=== PATIENT | female | born 1990 | race Caucasian/White ===

== ENCOUNTER 2025-05-11 17:34 | Observation (INO) | payer BC, SELFPAY ==
[2025-05-11] VITALS (10 sets, daily range): BP systolic 109–113; BP diastolic 60–67; PULSE 67–89; O2SAT 95–98; BMI 26.6
--- OUTSIDE RECORDS SUMMARY | 2025-05-11 17:41 | XMS_ITS | Data Portability ---
Author Organization [facility], [id number] [facility] Address [address] [place] [address] Assessment No assessment recorded. Plan of Treatment Reminders Order Date Submit Date Provider Last Modified By Organization Details Last Modified Time Details Appointments None recorded . Lab HPV DNA, high-ris k - Reflex to genotypi ng if HPV Detected 2024 025 LAVEEN [facility] ([facility]), [address] [facility] , [place] [address], [place], [address], 5 10:04:28 abo group + rh type, blood - Fax copy of results to [facility]: [phone] 2024 025 [facility], [address] [place], [place] [address], [address], 5 14:10:59 antibody screen, serum or plasma - Fax copy of results to [facility]: [phone] 2024 025 [facility], [address] [place], [address], 5 14:32:56 CBC w/ diff - Fax copy of results to [facility]: 2024 025 [facility], [address], [place], [address], 5 13:27:41 rubella igg Ab screen, serum - Fax copy of results to [facility]: [facility]-[phone] 025 [facility], [address] [facility], [place], [address], 5 08:38:58 syphilis Ab, igg - Fax copy of results to [facility]: [facility]-[phone] 025 [facility], [address] [place] [address], [place], [address], 5 08:36:03 HIV 1+2 AB + HIV 1 p24 Ag, qualitat lester immunoas say, serum - Fax copy of results to [facility]: [phone] 2024 025 [facility], [address] [place] [address], [place], [address], 5 08:38:52 HBsAg (hepatit is B surface Ag), serum - Fax copy of results to [facility]: [facility]-[phone] 025 [facility], [address] [place] [address], [place], [address], 5 09:01:54 Hepatiti s C IgG Ab, qual, serum - Fax copy of results to [facility]: [phone] 2024 025 [facility], [address] [facility], [place], [address], 5 08:41:37 urinalys is, complete - Fax copy of results to [facility]: [phone] 2024 025 [facility], [address], [place], [address], 14:09:42 culture, urine + sensitiv ity - Fax copy of results to [facility]: 2024 025 [facility], [address], [place], [address], 11:08:06 CT + NG + TV, DNA, urine/sw ab - Fax copy of results to [facility]: [phone] 2024 025 [facility] ([facility]), [address] [facility], [place], [address], 10:04:28 pap, LB 2024 025 [facility]EN [facility] ([facility]), [address], [place], [address], 5 10:04:28 vitamin D, 25-hydro xy, total, serum [address] [facility], [address], [place], [address], 17:35:26 TSH, serum or plasma 2024 025 [facility], [address], [place], [address], 5 12:19:04 vitamin B12, serum 2024 025 [facility], [address], [place], [address], 17:35:26 Referral None recorded . Procedures None recorded . Surgeries None recorded . Imaging None recorded . Medication Orders None recorded . Patient TargetsNo targets recorded. Patient InstructionsNo instructions recorded. Reason for Referral None Reported. Results Created Date Observation Date Name Description Value Unit Range Abnormal Flag Note LastModifiedBy Organization Detail LastModifiedTime 01/22/2001/23/2025 PAP TEST THIN PREP Pap test thin prep NEGATI VE FOR INTRAE PITHEL IAL LESION OR MALIGN XAVI normal ACCES SANDY #: 25-[id number] Sourc e: Cervi darren/E ndoce rvica l LMP: Date Taken : 01/21 Speci men Type: ThinP rep Vial Date Repor shellie: 2024 Clini darren Data: n/a RadHX Last Pap: WNL (07/20) Cytot ech: Tamara Hardy y, CT( CP) Date Repor shellie: 2024 Speci men Adequ acy: Satis facto ry for evalu ation Endoc ervic al/tr ansfo rmati on zone compo nent prese nt Gener al Categ oriza tion: NEGAT LESTER FOR INTRA EPITH ELIAL LESIO N OR MALIG BOBBY The follo wing tests have been order ed as reque sted and a separ ate repor t will be issue d: Chlam ydia, Gonor rhoea e, and Trich omona s This speci men has been moose zed by the ThinP rep Imagi ng Syste m, an inter activ e compu ter syste m which ana ts the lab in the scree ajay of ThinP rep Pap Test slide s. Follo wing imagi ng, the slide was revie wed by a Cytot echno logis t and/o r Patho logis t. Cervi darren cytol ogy is a scree ajay test prima rily for squam ous cance rs and precu rsors and has assoc iated false -nega tive and false -posi tive resul ts. New techn ologi es such as liqui d-bas ed prepa ratio ns may decre ase but will not elimi cara all false -nega tive resul ts. Regul ar sampl ing and follo w-up of unexp grayson d clini darren signs and sympt oms are recom tara d to minim ize false negat lester resul ts. D N A A S S A Y S R E P O R T TEST NAME RESUL TS ----- ---- ----- -- HPV High Risk Scree n (TMA) ThinP rep Vial The human papil lomav irus (HPV) High Risk Scree n is an FDA-a pprov ed in-vi tro ampli fied nucle ic acid test for the quali tativ e detec tion of E6/E7 viral mRNA. Resul ts shoul d be corre lated with patie nt prese ntati on, histo ry, cervi darren cytol ogy and other clini darren and labor atory findi ngs. See https ://PeopleJam/s ites/ defkiran lt/fi les/2 018-0 3/AW- 29690 _002_ 01.pd f for german ortizr gloria pierre. Test perfo rmed by [facility], [facility] d/b/a Loyda garcia, [address], [place] [address] , Danitza Duncan ra, DO, Labor atory [facility], [facility]# [id number] HPV High Risk *HPV NOT DETEC SHELLIE (TYPE S 16, 18, 31, 33, 35, 39, 45, 51, 52, 56, 58, 59, 66, 68) *HPV: The human papil lomav irus (HPV) High Risk Scree n is an FDA-a pprov ed in-vi tro ampli fied nucle ic acid test for the quali tativ e detec tion of E6/E7 viral mRNA. Resul ts shoul d be corre lated with patie nt prese ntati on, histo ry, cervi darren cytol ogy and other clini darren and labor atory findi ngs. See https ://ww w.hol ogic. com/s ites/ defau lt/fi les/2 018-0 3/AW- 16426 _002_ 01.pd f for german er angelr gloria pierre. Test perfo rmed by [facility] logis [employer], [employer] d/b/a [facility], [address], [place] [address] , Danitza Duncan ra, DO, Labor [facility], CLIA# [id number] End of t Techn ical servi jarek provi ded by [facility] iated Patho logis [employer], [employer], d/b/a [facility], [address] [place] [address] David hennessy MD, [facility]. Case revie wed and diagn osis rende red at [facility]o logis [employer], [facility], d/b/a [facility], [address] [place] [address] David hennessy MD, [facility]. CONFI DENTI AL Not Available [facility] ([facility]) [address], [place], [address], 01/23/2025 10:04:28 01/22/20 25 01/22/2025 CHLAM YDIA, GONOR RHOEA E, AND TRICH OMONA S trichomonas vaginalis, aptima (panther) NOT DETECT ED normal DNA testi ng perfo rmed by [employer] shellie Ampli ficat ion (TMA) . Resul ts shoul d be inter prete d in conju nctio n with patie nt histo ry and clini darren prese ntati on. This assay is highl y accur ate, but rare false posit lester and negat lester resul ts may occur . Posit lester resul ts in low preva lence popul ation s may requi re re-ev aluat ion. A negat lester resul t does not precl ude a possi ble infec tion due to a speci men inade quacy or sampl ing error . Test perfo rmed by [facility] d/b/a [facility], [address], [place] [address] , Danitza Duncan ra, , [facility], CLIA# [id number] Not Available [facility] ([facility]) [address], [place], [address], 01/23/2025 10:04:28 01/22/20 25 01/22/2025 CHLAM YDIA, GONOR RHOEA E, AND TRICH OMONA S neisseria gonorrhoeae, aptima NOT DETECT ED normal DNA testi ng perfo rmed by [employer] shellie Ampli ficat ion (TMA) . Resul ts shoul d be inter prete d in conju nctio n with patie nt histo ry and clini darren prese ntati on. This assay is highl y accur ate, but rare false posit lester and negat lester resul ts may occur . Posit lester resul ts in low preva lence popul ation s may requi re re-ev aluat ion. A negat lester resul t does not precl ude a possi ble infec tion due to a speci men inade quacy or sampl ing error . Test perfo rmed by [facility] d/b/a [facility], [address], [place] [address] , Danitza Duncan ra, DO, Labor atory [facility], CLIA# [id number] Not Available [facility]) [address], [place], [address], 01/23/2025 10:04:28 01/22/20 25 01/22/2025 CHLAM YDIA, GONOR RHOEA E, AND TRICH OMONA S chlamydia trachomatis, aptima NOT DETECT ED normal DNA testi ng perfo rmed by Trans c[employer] shellie Ampli ficat ion (TMA) . Resul ts shoul d be inter prete d in conju nctio n with patie nt histo ry and clini darren prese ntati on. This assay is highl y accur ate, but rare false posit lester and negat lester resul ts may occur . Posit lester resul ts in low preva lence popul ation s may requi re re-ev aluat ion. A negat lester resul t does not precl ude a possi ble infec tion due to a speci men inade quacy or sampl ing error . Test perfo rmed by [facility] d/b/[facility], [address], [place] [address] , Danitza Duncan ra, DO, Labor atory [facility], CLIA# [id number] Not Available [facility] ([facility]) [address] [facility], [place], [address], 01/23/2025 10:04:28 01/22/20 25 01/22/2025 HPV HIGH RISK SCREE N (TMA) HPV high risk NOT DETECT ED normal The human papil lomav irus (HPV) High Risk Scree n is an FDA-a pprov ed in-vi tro ampli fied nucle ic acid test for the quali tativ e detec tion of E6/E7 viral mRNA. Resul ts shoul d be corre lated with patie nt prese ntati on, histo ry, cervi darren cytol ogy and other clini darren and labor atory findi ngs. See https ://PeopleJam/s ites/ defau lt/fi les/2 018-0 3/AW- 75875 _002_ 01.pd f for furth er infor matio n. Test perfo rmed by [facility] [employer], [employer] d/b/a [facility], [address], [place] [address] , Danitza Duncan ra, , Labor atory [facility], CLIA# [id number] Not Available [facility] ([facility]) [address], [place], [address], 01/23/2025 10:04:28 Result Notes None recorded. 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 64120809 Completed 202408/26/2024 Amrita mckeon null, [facility] 5 07:59:25 Irritabl e bowel syndrome 79143289 Completed 202408/26/2024 Amrita mckeon null, [place] [facility] 5 07:58:56 SARS-CoV -2 Completed 202408/26/2024 Amrita mckeon null, [place] [facility] 5 07:59:07 Anxiety disorder 357601133 Active 2024 Amrita mckeon null, [place] [facility] 5 07:59:19 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 11194516 Active 2024 Amrita mckeon null, [place] [facility] 5 07:59:24 Chlamydi al infectio n 377549449 Completed 202408/26/2024 Amrita mckeon null, [place] [facility] 5 07:59:41 Lack or loss of sexual desire 204085217 Active 2024 LOVE MCKEON [address], [place], [place], [address], [facility] 5 16:10:29 Vitamin D deficien cy 53350495 Active 2024 LOVE MCKEON [address] [facility] [address], [place], [place], [address], [facility] 5 17:48:09 Vitamin B12 deficien cy (non anemic) 26721045 Active 2024 LOVE MCKEON [address] [facility] [address], [place], [place], [address], [facility] 5 17:49:00 Pregnanc y 53558969 Completed 202403/14/2025 Raiza Pereira [facility], [facility] 5 17:00:57 Low back pain 543231030 Active 2024 Chris Nix null, [facility] 5 10:59:29 History of depressi on 677405431 Completed 2024 zoloft PP in jul 2020. stopped cymbalta before NOB, doing fine @NOB JOSE HOLBROOK MD [address] [facility] [address], [place], [place], [address], [facility] 5 11:15:14 Past pregnanc y history of section 830336742 Completed 2024 vacuum for dena, then CS at 5cm arrest. TOLAC info @NOB. JOSE HOLBROOK MD [address] [facility] [address], [place], [place], [address], [facility] 5 11:04:55 Problem Notes None recorded. Procedures Surgical History Date Name Laterality Status Provider Name and Address Organization Details Recorded Time 01/22/20 25 U/S OB FIRST TRIMESTER (UEHRC) completed JOSE HOLBROOK MD [address] [facility] [address], [place], [address], [facility] 01/21/2025 11:10:53 07/20/19 23 Date of Last Pap Smear completed Marlen Light [place] [facility] 02/18/2025 09:33:11 05/02/20 22 Dilation and Curettage completed Amrita Peacock [facility] 08/26/2024 08:04:43 09/25/19 20 Appendectomy completed Amrita Peacock [facility] 08/26/2024 08:03:48 06/26/19 17 Date of Last Colonoscopy completed Tabitha Huber(TERM) [facility] 12/31/2024 08:40:56 endoscopy completed Amrita Peacock [facility] 08/26/2024 08:04:57 insertion of intrauterine contraceptive device completed Amrita Peacock [facility] 08/26/2024 15:49:05 Appendectomy completed Not Available [facility] 10/24/2024 12:22:55 section completed Not Available [facility] 10/24/2024 12:22:55 dilation and curettage completed Not Available [facility] 10/24/2024 12:22:55 introduction of Mirena coil completed Not Available [facility] 10/24/2024 12:22:55 colonoscopy completed Not Available [facility] 10/24/2024 12:22:55 Colonoscopy completed Marlen Light [facility] 02/18/2025 09:33:20 Imaging Results None recorded. Procedure Notes None recorded. Medical Equipment None Reported. Allergies Allergen ID Allergen Name Allergen Category Reaction Reaction Severity Criticality Documentation Date Start Date Code Code System Note Provider Name and Address Organization Details Recorded Time 892882 Benadryl medicatio n rash Not available Not available 08/26/2024 7 RxNorm Amrita ferraro [place] [facility] 07:57:12 Medications Name Sig Start Date Stop Date Status Note LastModified by Organization Details LastModified Time azithromycin 250 mg tablet TAKE 2 TABLETS BY MOUTH ON DAY 1, AND THEN TAKE 1 TABLET BY MOUTH ONCE A DAY ON DAY 2 THROUGH DAY 5 08/26 completed Not Available Not Available Not Available Cymbalta 60 mg capsule,megha yed release Take 1 capsule every day by oral route. 01/21 completed Not Available Not Available Not Available active Not Available Not Avai lable Not Available Vitals Date Recorded Body height Body mass index (BMI) Body weight Systolic And Diastolic Provider Name and Address Organization Details Last Updated DateTime 08/26/2024 175.26 cm 25.4 kg/m2 53808.89 g 118/68 mm[Hg] Amrita Peacock [facility] 08/26/2024 15:46:26 Date Recorded Body weight Body mass index (BMI) Body height Systolic And Diastolic Provider Name and Address Organization Details Last Updated DateTime 01/21/2025 21988.480 01 g 25.5 kg/m2 175.26 cm 104/60 mm[Hg] Chris Nxi [facility] 01/21/2025 10:58:10 Date Recorded Body weight Body mass index (BMI) Body height Systolic And Diastolic Provider Name and Address Organization Details Last Updated DateTime 02/18/2025 27542.849 49 g 26.1 kg/m2 175.26 cm 110/60 mm[Hg] Marlen Light [facility] 02/18/2025 09:28:31 Social History Question Answer Notes LastModified by Let it Wave Details LastModified Time Tobacco Smoking Status Never Smoker Amrita Peacock [facility] 08/26/2024 15:46:52 Do You Have An Advance Directive? No Information not available 08/26/2024 If You Are , What Was Your Level Of Alcohol Consumption Prior To ? Occasional Information not available 02/18/2025 What Is Your Level Of Caffeine Consumption? Occasional Information not available 02/18/2025 What Type Of Diet Are You Following? REGULAR Information not available 08/26/2024 What Is Your Relationship Status? Information not available 08/26/2024 Sex: Female Functional Status Question Answer Note LastModified by Organizat ion Details LastModified Time Do you use any illicit or recreational drugs? No Note: Information not available 10/24/2024 What is your level of alcohol consumption? None Information not available 02/18/2025 Are you currently employed? 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 Family History Relationship Description Onset Age of this Age Resolved Age Notes LastModified by Organization Details LastModified Time Mother Hypertensive disorder High Blood Pressu re [email or web address] Not available 10/24/2024 18:28:53 Medical History Condition Response Psych- Anxiety Disorder Y ID-Other Y GI- Irritable Bowel Syndrome Y Cancer- Genetic screening Gynecological History Statement/Question Response History of PCOS N History of Fibroids N Flow Moderate Date of LMP 11/06/2024 History of Infertility N History of Cervical Dysplasia N Current Control Method: Withdrawal History of Vulvar Dysplasia N Duration of Flow (days) 5-7 Age at Menarche 14 History of Recurrent Ovarian Cysts N History of Endometriosis N HPV Vaccine Completed Post Menopausal Hormone Therapy User Nev er Date of Last Colonoscopy 06/26/2016 Frequency of Cycle (Q days) 28 Sexually Active? Y History of Dysmenorrhea N Menses Monthly N Date of Last Pap Smear 07/20/2022 Sexual Problems? Y History of Sexually Transmitted Infectio n N Obstetrics History GPAL:G 5 P 2 0 2 2 Type Value Full Term 2 Spontaneous 2 Living 2 Total 5 Immunizations Vaccine Type Date Status Note Provider Nam e and Address Organization Details Recorded Time Tdap 3 completed Amrita Peacock [facility] 08/26/2024 07:57:53 HPV, quadrivalent 2 completed Not Available [facility] 10/24/2024 11:57:46 HPV, quadrivalent 1 completed Not Available [facility] 10/24/2024 11:57:46 HPV, quadrivalent 1 completed Not Available [facility] 10/24/2024 11:57:46 Past Encounters Encounter ID Performer Location Encounter Start Date Encounter Closed Date Diagnosis/Indication Diagnosis SNOMED-CT Code Diagnosis ICD10 Code Diagnosis IMO Codes Diagnosis Note [id number], [place] [id number] [facility] [address] [facility] [address] [place] [address] 08/26/2024 15:36:39 08/26/2024 16:12:55 Gynecologic examination 08829328 Z01.419 Lack or lo ss of sexual desire 052538759 F52.0 -discussed sx may be related to cymbalta use-briefl y discussed Addyi use and pamphlet provided-w ill have labs done and if WNL and would like to start addyi-will call office for rx Contracept ion care management 943306700 Z30.9 -pamphlet provided for tubal ligation-lior grimes we do not do tubal ligations in this practice but we can give her informatio n for another practice if she decides to have one Depression screening 171 849992 Z13.31 -score 8-sees PCP for depression /anxiety-r ecently had dose of cymbalta increased [id number] JOSE HOLBROOK MD [id number] [facility] [address] [facility] [address] [place] [address] 01/21/2025 10:43:51 01/21/2025 11:17:27 Amenorrhea 71280690 N91.0 screening 2437 65941 Z36.9 Finding of 290 226991 Z39.1 134650 Low back pain 859949196 M54.59 4199361618 Screening for malignant neoplasm of cervix 855169583 Z12.4 Human israel lloma virus screening 657537692 Z11.51 Past pregn xavi history of section 095143382 O34.219 04480072 History of depression 16 1685084 O99.891 Z86.59 [id number] JOSE HOLBROOK MD [id number] [facility] [address] [facility] [address] [place] [address] 02/18/2025 09:17:49 02/18/2025 09:46:19 Past history of section 742645362 O34.219 29588146 History of depression 16 8761620 O99.891 Z86.59 705463 care status 24 6440795 Z34.82 93729508 Health Concerns Section Related Observation LastModified by Organization Detai ls LastModified Time None Recorded Concern Status LastModified by Organization Details LastModified Time None Recorded Advance Directives Directive N: Payers Insurance Date Sequence Insurance Name Policy Number Policy Anderson Covered Member ID Anderson Member ID Guarantor Name 03/14/2025 1 [place] [id number] Levi Block [id number] Amanda Block Notes Date Note Type Note Provider Name and Address Organization Details Recorded Time 5 text/html [facility] Annual Well-Women Visit Age 30-39Reported by PatientPreventive Health ScreeningsFor current medical history, patient reportsreviewed and documented. For relevant family history, patient reportsno family history of breast cancer. For last pap smear, patient [id number]. For thyroid screening, patient reportsdue.ContraceptionFor contraceptive method, patient reportssatisfied with current methodandcontraceptive method: condoms(still thinking about tubal ligation).Sexually ActiveFor sexually active, patient reportshas decreased libido (since of youngest child-worse the last year since starting cymbalta-increasingly worse recently since increase in dose of cymbalta)but reportsyes: same partner.STI ScreenFor sti screen, patient reportsdeclines sti testing.Menstrual History/SymptomsFor menstrual cycle, patient reportsnormal menstrual cycle and flow.Psychological symptomsFor psychological symptoms, patient reportsdepressionandanxiety /panic disorder. [facility] [address], [place], [address], [facility] 08/26/2024 16:49:07 5 text/html [facility] present per [facility] Policy Patient is a 34 year old female, .Menstrual cycles are and occur approximately every days, with LMP of 11/06/2024.Based on LMP estimated gestational age is 10 wks and 6 days.Ultrasound performed today. Ultrasound if performed, showed estimated gestational age of wks and days.Final EDC determined to by based on . OB history is significant for the followingPMH:Hypertension: noGestational diabetes: noDiabetes: noRheumatologic disorder (e.g. Lupus): noNeurologic disorder: noThyroid disease: noInfertility: noDVT/PE/APS: no She has been taking the following medications since her LMP: Cymbalta, PNV.She has not be exposed to any toxins, chemicals or radiation since her LMP.She did not require fertility treatmentSince her LMP she has had the following symptoms including nausea, vomiting, headaches Infection History:Patient or partner has history of genital herpes NoHistory of STD (GC, CT, HPV, syphilis, HIV) NoHistory of LEEP, cervical conization, cervical laser ablation or cervical cryosurgery NoLives with someone with TB or TB exposed NoRash or viral illness since LMP NoHave you received the flu vaccine this year noHave you received the COVID vaccine/booster this year no Other HistoryThere are not cats in the home.She has childhood varicella disease or chicken pox vaccine in the past.Have you ever received a blood transfusion NoWill you approve a blood transfusion in case of an emergency yes ILPQC Screening ToolDo you feel unsafe in your relationship with your partner of with anyone in your environment? NoHave you ever had difficulties in your life due to alcohol or drugs including prescription drugs? NoDoes your partner, your friends or anyone else close to you have any problems with alcohol or drug use? NoDo either of your parents have a history of any problems with alcohol or drug use?NoSince your LMP have your used alcohol or drugs? NoSince your LMP have you smoked cigarettes, used tobacco products or vaped? No(If the patient answers YES to any of the above questions, additional screening and/or counseling might be appropriate) JOSE HOLBROOK MD [address], [place], [address], [facility] 01/21/2025 11:16:29 OBGyn Episode Ob Episode Information Episode Created Date Number of Fetuses Patient Bloodtype Patient rh Status Prepregnancy Weight lbs Domestic Partner Domestic Partner Phone Father Name Selling Underwriter Status 01/01/20 25 1 A Positive CLOSED Fetus Data First Name Last Name Admitted to NICU Weight (g) Sex Living Outcome Pediatric Complications Fetus ID Race Codes Race Delivery Type [id number] Problems Problem Notes Problem Name Start Date End Date Resolution Snomed Code Not e History of depression 01/21/2025 [id number] 08 zoloft PP in jul 2020. stopped cymbalta before NOB, doing fine @NOB Past history of section 01/21/2025 [id number] vacuum f or dena, then CS at 5cm arrest. TOLAC info @NOB. Pedro Calculation Initial Pedro Date Initial Exam Date Initial Exam Provider Initial Ultrasound Date Last Menstrual Period Date Ultra Sound Weeks Gestation 08/13/2025 12/31/2024 01/21/2025 11/06/2024 11 Eighteen To Twenty Week Pedro Update Ultra Sound Date Fundal Height At Umbil Quickening Date Ultra Sound Latest Weeks Gestation Final Pedro Confirmed By Final Pedro Confirmed Date Final Pedro Date Ultra Sound Latest Days Gestation 0 0 Pre- Flowsheet Flowsheet Date 01/21/2025 Trivedi Score Blood Edema Fundus Height Fundus Units Glucose Ketones Leukocytes Nitrite Labor Signs Protein Cervic Dilation Cervic Effacement Cervic Station none none none neg Type Weight in lbs Pre/Post Dialysis Refused [id number] BP Diastolic BP Location Tested BP Systolic BP Type 60 104 Fetus Heart Rate Present Fetus Movement Comments nob visit see md note mw Flowsheet Date 02/18/2025 Trivedi Score Blood Edema Fundus Height Fundus Units Glucose Ketones Leukocytes Nitrite Labor Signs Protein Cervic Dilation Cervic Effacement Cervic Station none none none neg Type Weight in lbs Pre/Post Dialysis Refused [id number] BP Diastolic BP Location Tested BP Systolic BP Type 60 110 Fetus Heart Rate Present A 150 Fetus Movement A No Comments didn't bring tolac handout a long, but DID read entirely, interested in spont labor but not IOL. bring next time. 4 on depr screen and feeling great -bgPt was given order for 20 week us & depression screen. cr Menstrual History Last Menstrual Date Menses Monthly On Bcp Conception Prior Menses Frequency Hcg Plus Date Menarche Onset Age 0511/06/2024 Genetic Screening And Infection History Question Response Note Cystic Fibrosis false History of HIV false Hemoglobinopathy Or Carrier false Thalassemia (Kyrgyz, Guyanese, Mediterranean, Or Background): MCV < 80 false Neural Tube Defect (Meningomyelocele, Spina Bifi da, Or Anencephaly) false Patient Or Baby's Father Had A Child With Defects Not Listed Above false Congenital Heart Defect false Sickle Cell Disease Or Trait () false If Yes, Was Person Tested For Fragile X? false Recurrent Loss, Or A Stillbirth false If Yes, Agent(s) And Strength/Dosage false Maternal Metabolic Disorder (eg, Type 1 Diabetes , PKU) false Medications (including Suppl ements, Vitamins, Herbs, OTC Drugs), Illicit/Recreational Drugs, Alcohol true Cymbalta E[place]'s Chorea false Intellectual Disability/Autism false Other Inherited Genetic Or Chromosomal Disorder false Kristian Disease false Hemophilia Or Other Blood Disorders false Muscular Dystrophy false Live With Someone With TB Or Exposed To TB false Rash Or Viral Illness Since Last Menstrual Perio d false History Of STD, Gonorrhea, Chlamydia, HPV, Syphi lis false History of Hepatitis false Mental Retardation/Autism false Patient Or Partner Has History Of Genital Herpes false Prior GBS-infected child false Down Syndrome false Pierce-Sachs (eg, Temple, Cajun, Turks And Caicos Islander-Alpine) f alse Other Infection History false Other Structural Defect false Recent Travel History Outside of Country false Patient's Age Will Be 35 Yea rs Or Older At Estimated Date of Delivery false Any Other Genetic History false Plans and Education First Trimester Discussed Date Discussion Item Discussion Note Discuss ed By 01/21/2025 Screening for aneuploidy declines for now bgelly 01/21/2025 Indications for ultrasonography bgelly 01/21/2025 Use of any medicatio ns (including supplements, vitamins, herbs, or OTC drugs) bgelly Second Trimester Discussed Date Discussion Item Discussion Note Discuss ed By Third Trimester Discussed Date Discussion Item Discussion Note Discuss ed By 01/21/2025 Trial of labor after (TOLAC) counseling bgelly Delivery Information Delivery Date Delivery Type Labor Anesthesia Weeks Gestation Incision Type Labor Labor Length Hrs Delivered By Post Complications Tubal Sterilization Discharge Date Comments Discharge Information Feeding Method Contraceptive Method Maternal HG B and HCT Levels Ob Episode Information Episode Created Date Number of Fetuses Patient Bloodtype Patient rh Status Prepregnancy Weight lbs Domestic Partner Domestic Partner Phone Father Name Selling Underwriter Status 08/27/19 25 1 CLOSED Fetus Data First Name Last Name Admitted to NICU Weight (g) Sex Living Outcome Pediatric Complications Fetus ID Race Codes Race Delivery Type Full Term [id number] Vacuum/Fo rceps Pedro Calculation Initial Pedro Date Initial Exam Date Initial Exam Provider Initial Ultrasound Date Last Menstrual Period Date Ultra Sound Weeks Gestation 0 Eighteen To Twenty Week Pedro Update Ultra Sound Date Fundal Height At Umbil Quickening Date Ultra Sound Latest Weeks Gestation Final Pedro Confirmed By Final Pedro Confirmed Date Final Pedro Date Ultra Sound Latest Days Gestation 0 0 Menstrual History Last Menstrual Date Menses Monthly On Bcp Conception Prior Menses Frequency Hcg Plus Date Menarche Onset Age Delivery Information Delivery Date Delivery Type Labor Anesthesia Weeks Gestation Incision Type Labor Labor Length Hrs Delivered By Post Complications Tubal Sterilization Discharge Date Comments 1 39 false DHK Discharge Information Feeding Method Contraceptive Method Maternal HG B and HCT Levels Ob Episode Information Episode Created Date Number of Fetuses Patient Bloodtype Patient rh Status Prepregnancy Weight lbs Domestic Partner Domestic Partner Phone Father Name Selling Underwriter Status 08/27/19 1 CLOSED Fetus Data First Name Last Name Admitted to NICU Weight (g) Sex Living Outcome Pediatric Complications Fetus ID Race Codes Race Delivery Type , Spontane ous [id number] Pedro Calculation Initial Pedro Date Initial Exam Date Initial Exam Provider Initial Ultrasound Date Last Menstrual Period Date Ultra Sound Weeks Gestation 0 Eighteen To Twenty Week Pedro Update Ultra Sound Date Fundal Height At Umbil Quickening Date Ultra Sound Latest Weeks Gestation Final Pedro Confirmed By Final Pedro Confirmed Date Final Pedro Date Ultra Sound Latest Days Gestation 0 0 Menstrual History Last Menstrual Date Menses Monthly On Bcp Conception Prior Menses Frequency Hcg Plus Date Menarche Onset Age Delivery Information Delivery Date Delivery Type Labor Anesthesia Weeks Gestation Incision Type Labor Labor Length Hrs Delivered By Post Complications Tubal Sterilization Discharge Date Comments 2 true Discharge Information Feeding Method Contraceptive Method Maternal HG B and HCT Levels Ob Episode Information Episode Created Date Number of Fetuses Patient Bloodtype Patient rh Status Prepregnancy Weight lbs Domestic Partner Domestic Partner Phone Father Name Selling Underwriter Status 08/27/19 1 CLOSED Fetus Data First Name Last Name Admitted to NICU Weight (g) Sex Living Outcome Pediatric Complications Fetus ID Race Codes Race Delivery Type [id number] Full Term [id number] Primary Pedro Calculation Initial Pedro Date Initial Exam Date Initial Exam Provider Initial Ultrasound Date Last Menstrual Period Date Ultra Sound Weeks Gestation 0 Eighteen To Twenty Week Pedro Update Ultra Sound Date Fundal Height At Umbil Quickening Date Ultra Sound Latest Weeks Gestation Final Pedro Confirmed By Final Pedro Confirmed Date Final Pedro Date Ultra Sound Latest Days Gestation 0 0 Menstrual History Last Menstrual Date Menses Monthly On Bcp Conception Prior Menses Frequency Hcg Plus Date Menarche Onset Age Delivery Information Delivery Date Delivery Type Labor Anesthesia Weeks Gestation Incision Type Labor Labor Length Hrs Delivered By Post Complications Tubal Sterilization Discharge Date Comments 3 Regional-Ep idural 40 false ADP Discharge Information Feeding Method Contraceptive Method Maternal HG B and HCT Levels Ob Episode Information Episode Created Date Number of Fetuses Patient Bloodtype Patient rh Status Prepregnancy Weight lbs Domestic Partner Domestic Partner Phone Father Name Selling Underwriter Status 08/27/19 25 1 CLOSED Fetus Data First Name Last Name Admitted to NICU Weight (g) Sex Living Outcome Pediatric Complications Fetus ID Race Codes Race Delivery Type , Spontane ous [id number] Pedro Calculation Initial Pedro Date Initial Exam Date Initial Exam Provider Initial Ultrasound Date Last Menstrual Period Date Ultra Sound Weeks Gestation 0 Eighteen To Twenty Week Pedro Update Ultra Sound Date Fundal Height At Umbil Quickening Date Ultra Sound Latest Weeks Gestation Final Pedro Confirmed By Final Pedro Confirmed Date Final Pedro Date Ultra Sound Latest Days Gestation 0 0 Menstrual History Last Menstrual Date Menses Monthly On Bcp Conception Prior Menses Frequency Hcg Plus Date Menarche Onset Age Delivery Information Delivery Date Delivery Type Labor Anesthesia Weeks Gestation Incision Type Labor Labor Length Hrs Delivered By Post Complications Tubal Sterilization Discharge Date Comments 9 true Discharge Information Feeding Method Contraceptive Method Maternal HG B and HCT Levels
--- OUTSIDE RECORDS SUMMARY | 2025-05-11 17:41 | XMS_ITS | Encounter Summary ---
Author Organization [facility] Address [address] [place] [address] Care Team Providers Care Auto Body Repair Teacher Name Role Phone Karey HollandP Primary Care Provider [phone] Karey Holland TABLE FILLER Primary Care Provider [phone] Karey Holland TABLE FILLER Primary Care Provider [phone] Karey Holland TABLE FILLER Primary Care Provider [phone] Karey Holland TABLE FILLER Unavailable [phone] Encounter Details Date Type Department Care Team (Late st Contact Info) Description 12/08/2015 Abstract [facility] CONVERSION [address] [place], [place] [id number] , Generic ConversionMD Social History Tobacco Use Types Packs/Day Years Used Date Smoking Tobacco: Never Assessed Comments Unknown Sex and Gender Information Value Date Recorded Sex Assigned at Female 02/21/2025 1:56 PM CDT Legal Sex Female 7:54 AM CDT Gender Identity Not on file Sexual Orientation Not on file documented as of this encounter Plan of Treatment Not on file documented as of this encounter Visit Diagnoses Not on filedocumented in this encounter Additional Health Concerns Infection Onset Date Last Indicated Resolved Time COVID-19 Rule Out 02/05/2020 02/05/2020 02/10/2020 9:54 AM CDT COVID-19 Rule Out 09/27/2020 09/27/2020 09/28/2020 12:08 AM CDT COVID-19 Rule Out 11/11/2020 11/11/2020 11/11/2020 4:18 PM CDT COVID-19 Rule Out 02/22/2021 02/22/2021 02/22/2021 2:47 PM CDT COVID-19 Rule Out 05/25/2021 05/25/2021 05/25/2021 1:25 PM FLIGHT ENGINEER MANAGER COVID-19 Rule Out 02/28/2024 02/28/2024 02/28/2024 3:03 PM CDT COVID-19 Rule Out 02/21/2025 02/21/2025 02/21/2025 2:14 PM CDT documented as of this encounter Care Teams Auto Body Repair Teacher Relationship Specialty Start Date End Date Karey Holland FNP [address] [place] [address] PCP - General Nurse Practitioner Family 12/19/17 Karey Holland FNP [address] [place] [address] PCP - General Nurse Practitioner Family 05/14/1809/25 Karey Holland FNP [address] [place] [address] PCP - General Nurse Practitioner Family 09/27/1909/25 Karey Holland FNP [address] [place] [address] PCP - General Nurse Practitioner Family 10/20/21 Karey Holland FNP [address] [place] [address] Nurse Practitioner Family 10/20/21 documented as of this encounter
--- OUTSIDE RECORDS SUMMARY | 2025-05-11 17:41 | XMS_ITS | Encounter Summary ---
Author Organization [facility] Address [address] [place] [address] Care Team Providers Care Assembler Seat Name Role Phone Karey Holland Primary Care Provider Karey Holland OSTEOLOGIST Unavailable [phone] Encounter Details Date Type Department Care Team (Late st Contact Info) Description 12/20/2023 [facility] Patient Accounts [address] [place] [address] [facility] Action Required Social History Tobacco Use Types Packs/Day Years Used Date Smoking Tobacco: Never Passive Smoke Exposure: Never Smokeless Tobacco: Never Comments:Provider to ip counsel Alcohol Use Standard Drinks/Week Comments Not Currently 0 (1 standard drink = 0.6 oz pur e alcohol) [facility] Utilities Answer Date Recorded In the past 12 months has TV[employer], oil, or water [employer] threatened to shut off services in your home? No 05/12/2023 Humiliation, Afraid, Rape, and Kick questionnair e Answer Date Recorded Within the last year, have y ou been afraid of your partner or ex-partner? No 05/12/2023 Within the last year, have y ou been humiliated or emotionally abused in other ways by your partner or ex-partner? No Within the last year, have y ou been kicked, hit, slapped, or otherwise physically hurt by your partner or ex-partner? No 05/12/2023 Within the last year, have y ou been raped or forced to have any kind of sexual activity by your partner or ex-partner? No 05/12/2023 Social Connection and Isolation Panel Answer Date Recorded In a typical week, how many times do you talk on the phone with family, friends, or neighbors? More than three times a week 05/12/2023 How often do you get togethe r with friends or relatives? Once a week 05/12/2023 How often do you attend chur or mormonism services? Patient declined 05/12/2023 Do you belong to any clubs o r organizations such as orthodox groups, unions, fraternal or athletic groups, or school groups? Patient declined 05/12/2023 How often do you attend meet ings of the clubs or organizations you belong to? Patient declined 05/12/2023 Are you , , di vorced, , never , or living with a partner? 05/12/2023 AUDIT-C Answer Date Recorded Q1: How often do you have a drink containing alcohol? Never 05/12/2023 Q2: How many drinks containi ng alcohol do you have on a typical day when you are drinking? Patient does not drink Q3: How often do you have si x or more drinks on one occasion? Never 05/12/2023 Overall Financial Resource Strain (CARDIA) Answe r Date Recorded How hard is it for you to pa y for the very basics like food, housing, medical care, and heating? Not hard at all 05/12/2023 PHQ-2 Answer Date Recorded Patient Health Questionnaire-2 Score 0 11/13/2023 [facility] - Occupational Stress Questionnaire Answer Date Recorded Do you feel stress - tense, restless, nervous, or anxious, or unable to sleep at night because your mind is troubled all the time - these days? Not at all 05/12/2023 Exercise Vital Sign Answer Date Recorde d On average, how many days pe r week do you engage in moderate to strenuous exercise (like a brisk walk)? 3 days 05/12/2023 On average, how many minutes do you engage in exercise at this level? 30 min 05/12/2023 Hunger Vital Sign Answer Date Recorded Within the past 12 months, y ou worried that your food would run out before you got the money to buy more. Never true 05/12/20 23 Within the past 12 months, t he food you bought just didn't last and you didn't have money to get more. Never true 05/12/2023 PRAPARE - Transportation Answer Date Re corded In the past 12 months, has l ack of transportation kept you from medical appointments or from getting medications? No 04/26 In the past 12 months, has l ack of transportation kept you from meetings, work, or from getting things needed for daily living? No 05/12/2023 Housing Stability Vital Sign Answer Hari e Recorded In the last 12 months, was t here a time when you were not able to pay the mortgage or rent on time? No 05/12/2023 In the last 12 months, how many places have you lived? 1 05/12/2023 In the last 12 months, was t here a time when you did not have a steady place to sleep or slept in a senior care (including now)? No 05/12/2023 Comments No Sex and Gender Information Value Date Recorded Sex Assigned at Female 02/21/2025 1:56 PM CDT Legal Sex Female 7:54 AM CDT Gender Identity Not on file Sexual Orientation Not on file documented as of this encounter Functional Status * Are you deaf or do you have serious difficulty hearing Answer Date of Assessment Author Status No 05/12/2023 6:14 AM Sabine Madison RN Active * Are you blind or do you have serious difficulty seeing, even when wearing glasses? Answer Date of Assessment Author Status No 05/12/2023 6:14 AM Sabine Madison RN Active * Do you have serious difficulty walking or climbing stairs? Answer Date of Assessment Author Status No 05/12/2023 6:14 AM Sabine Madison RN Active * Do you have difficulty dressing or bathing? Answer Date of Assessment Author Status No 05/12/2023 6:14 AM Sabine Madison RN Active * Because of a physical, mental, or emotional condition, do you have difficulty doing errands alone such as visiting a doctor's office or shopping? Answer Date of Assessment Author Status No 05/12/2023 6:14 AM Sabine Madison RN Active documented as of this encounter Mental Status * Because of a physical, mental, or emotional condition, do you have serious difficulty concentrating, remembering, or making decisions? Answer Entry Date Author Status No 05/12/2023 6:14 AM Sabine Madison RN Active documented in this encounter Plan of Treatment Not on file documented as of this encounter Visit Diagnoses Not on filedocumented in this encounter Additional Health Concerns Infection Onset Date Last Indicated Resolved Time COVID-19 Rule Out 02/28/2024 02/28/2024 02/28/2024 3:03 PM CDT COVID-19 Rule Out 02/21/2025 02/21/2025 02/21/2025 2:14 PM CDT Assessment Noted Time PHQ-9 Depression Total Score: 2 03/30/20 21 1:47 PM CDT documented as of this encounter Care Teams Assembler Seat Relationship Specialty Start Date End Date Karey Holland FNP [address] [place] [address] BRET Garcia [id number] PCP - General Nurse Practitioner Family 10/20/21 Karey Holland FNP [address] [place] [address] BRET Garcia [id number] Nurse Practitioner Family 10/20/21 documented as of this encounter
--- NOTE | 2025-05-11 17:53 | OBADM ---
This patient, Amanda Block, admitted to the OB room OB Post 117 for observation. Patient/family oriented to hospital policies and general routines including ID bracelet, bed and alarms, visiting hours, pain management, procedures, bathroom and other care routines, personal items, smoking policy, room service/diet, and visiting hours. Patient/Family are encouraged to report perceived risks to care and to ask questions if they do not understand what they are told or what they should do.
--- NOTE | 2025-05-12 11:58 | PM.OBTRLD ---
OB - Triage/Final Diagnosis Visit Information Comments/Additional reasons for admission: I have assessed the risk for this patient, Amanda Block, and determined that she would benefit from observation care. Evaluation Vital signs: Vital Signs - 24 hr 05/11/25 18:01 05/11/25 18:06 05/11/25 18:11 Pulse Rate 70 Blood Pressure 113/67 Pulse Oximetry 98 98 97 05/11/25 18:15 05/11/25 18:16 05/11/25 18:21 Pulse Rate 71 Blood Pressure 109/60 Pulse Oximetry 95 98 05/11/25 18:26 05/11/25 18:30 05/11/25 18:31 Pulse Rate 73 Blood Pressure 109/65 Pulse Oximetry 98 97 05/11/25 18:36 Pulse Rate Blood Pressure Pulse Oximetry 98 Final Diagnosis (1) Fall from slipping: Code(s): W01.0XXA - Fall on same level from slipping, tripping and stumbling without subsequent striking against object, initial encounter Status: Acute
== END 2025-05-11 18:45 | disposition home or self-care (01) ==
PROVIDERS: Admitting Provider Obstetrics & Gynecology; PCP Nurse Practitioner; Visit Provider Obstetrics & Gynecology
DX: O9A.212 Injury, poisoning and certain other consequences of external causes complicating pregnancy, second trimester (principal); Z3A.26 26 weeks gestation of pregnancy; W01.0XXA Fall on same level from slipping, tripping and stumbling without subsequent striking against object, initial encounter
CPT/HCPCS: G0378; G0379

== ENCOUNTER 2025-05-11 18:45 | Emergency (ER) | payer BC, SELFPAY ==
--- NOTE | ~2025-05-11 | CT_ITS ---
CT HEAD NON-CONTRAST Clinical History: head injury Comparison: None Technique: Unenhanced axial images skull base to vertex Coronal, sagittal reformats CT images acquired with automatic exposure control for dose reduction DLP: 605 mGy-cm Findings: Sulci, ventricles: Unremarkable. No intracerebral hemorrhage. No evidence acute territorial infarct. No mass effect, midline shift. Bony calvarium intact. Visualized paranasal sinuses: Clear. Mastoid air cells: Clear. IMPRESSION: 1. No acute intracranial findings. Reviewed, dictated and finalized at location [facility]
[2025-05-11 18:51] VITALS: BP 120/67; PULSE 80; RESP 16; TEMP 36.9; O2SAT 100
--- NOTE | 2025-05-11 19:15 | ED.FALL ---
HPI - Fall General Chief Complaint: Fall <Dread Rahman MD - Last Filed: 05/11/25 20:18> Stated Complaint: fall, head injury <Dread Rahman MD - Last Filed: 05/11/25 20:18> Time Seen by Provider: 05/11/25 19:06 <Dread Rahman MD - Last Filed: 05/11/25 20:18> History of Present Illness HPI Narrative: 34-year-old 4 para 3 about 26 weeks of gestation here with a complains of fall. Patient states that she slid and fell and hit the left temporal area She denies any No LOC . She state it was at her house at 830 am ,.denies hitting her abd , no nausea or vomitng .Was seen in OB earlier and was later referred to ER <Dread Rahman MD - Last Filed: 05/11/25 20:18> MD complaint: fall <Dread Rahman MD - Last Filed: 05/11/25 20:18> Onset (ago): hour(s) (11) <Dread Rahman MD - Last Filed: 05/11/25 20:18> Fall from: standing <Dread Rahman MD - Last Filed: 05/11/25 20:18> Fall witnessed: yes, by family <Dread Rahman MD - Last Filed: 05/11/25 20:18> Place fall occurred: home <Dread Rahman MD - Last Filed: 05/11/25 20:18> Loss of consciousness: none <Dread Rahman MD - Last Filed: 05/11/25 20:18> Prolonged down time: no <Dread Rahman MD - Last Filed: 05/11/25 20:18> Symptoms prior to fall: none <Dread Rahman MD - Last Filed: 05/11/25 20:18> Context: tripped/slipped <Dread Rahman MD - Last Filed: 05/11/25 20:18> Location of injury: head <Dread Rahman MD - Last Filed: 05/11/25 20:18> Related Data Home Medications: Home Medications ?Medication ?Instructions ?Recorded ?Confirmed ?Last Taken ?Type docosahexaenoic acid 200 mg PO DAILY 04/24/25 04/24/25 05/10/25 20:00 History capsule ( DHA) <Dread Rahman MD - Last Filed: 05/11/25 20:18> Allergies/Adverse Reactions: Allergies Allergy/AdvReac Type Severity Reaction Status Date / Time diphenhydramine (From Allergy Intermediate Hives Verified 05/11/25 19:01 Benadryl) <Dread Rahman MD - Last Filed: 05/11/25 20:18> Review of Systems Review of Systems: All systems reviewed & are unremarkable except as noted in HPI and below <Dread Rahman MD - Last Filed: 05/11/25 20:18> Constitutional: Constitutional: Reports no additional constitutional complaints <Dread Rahman MD - Last Filed: 05/11/25 20:18> Eyes: Eyes: Reports no additional eye complaints <Dread Rahman MD - Last Filed: 05/11/25 20:18> ENT: Reports system reviewed and no additional complaints, except as documented <Dread Rahman MD - Last Filed: 05/11/25 20:18> Cardiovascular: Cardiovascular: Reports no additional cardiovascular complaints <Dread Rahman MD - Last Filed: 05/11/25 20:18> Respiratory: Respiratory: Reports no additional respiratory complaints <Dread Rahman MD - Last Filed: 05/11/25 20:18> Musculoskeletal: Musculoskeletal: Reports no additional musculoskeletal complaints <Dread Rahman MD - Last Filed: 05/11/25 20:18> Neurologic: Reports system reviewed and no additional complaints, except as documented <Dread Rahman MD - Last Filed: 05/11/25 20:18> Psychiatric: Psychiatric: Reports no additional psychiatric complaints <Dread Rahman MD - Last Filed: 05/11/25 20:18> PMFSH Past Medical History Medical History: Medical History (Updated 05/11/25 @ 19:16 by Dread Rahman MD) Irritable bowel syndrome Anxiety <Dread Rahman MD - Last Filed: 05/11/25 20:18> Surgical History Surgical History: Surgical History Hx of section History of dilatation and curettage Hx of appendectomy <Dread Rahman MD - Last Filed: 05/11/25 20:18> Social History Social History: Social History Smoking status: Never smoker Lack of Transportation: No Lack of Food: Never True Current Housing: I Have Housing Concerned About Future Housing: No Difficulty Paying Gas/Electric Bills: No Difficulty Paying for Meds: No Currently Unemployed: No Education: Associate Degree Difficulty w/ Childcare or Family Care: No <Dread Rahman MD - Last Filed: 05/11/25 20:18> Exam Narrative: GENERAL: Well-appearing, well-nourished, and in no acute distress. HEAD: Normocephalic, atraumatic. EYES: PERRLA and EOMI. ENT: Nares clear, no rhinorrhea or epistaxis. Mucous membranes moist. NECK: Supple. CHEST: Clear to auscultation. No respiratory distress. HEART: Regular rate and rhythm. No murmur heard. Normal peripheral pulses. ABDOMEN: Soft, nontender, Gravid abdomen EXTREMITIES: Normal range of motion. No edema. SKIN: Warm, dry, no rash. NEURO: No focal deficits. Alert and oriented x3. PSYCH: Normal mood and affect. <Dread Rahman MD - Last Filed: 05/11/25 20:18> Course Course Emergency Course: Zych: Patient signed out pending CT brain. Ct brain negative for acute injury. patient stable. discharged. <Zay Schroeder MD - Last Filed: 05/11/25 20:53> Vital Signs Vital signs: Vital Signs Temperature 98.4 F 05/11/25 18:51 Pulse Rate 80 05/11/25 18:51 Respiratory Rate 16 05/11/25 18:51 Blood Pressure 120/67 05/11/25 18:51 Pulse Oximetry 100 05/11/25 18:51 Temperature 98.4 F 05/11/25 18:51 Pulse Rate 80 05/11/25 18:51 Respiratory Rate 16 05/11/25 18:51 Blood Pressure 120/67 05/11/25 18:51 Pulse Oximetry 100 05/11/25 18:51 <Dread Rahman MD - Last Filed: 05/11/25 20:18> Vital Signs Temperature 98.4 F 05/11/25 18:51 Pulse Rate 80 05/11/25 18:51 Respiratory Rate 16 05/11/25 18:51 Blood Pressure 120/67 05/11/25 18:51 Pulse Oximetry 100 05/11/25 18:51 Temperature 98.4 F 05/11/25 18:51 Pulse Rate 80 05/11/25 18:51 Respiratory Rate 16 05/11/25 18:51 Blood Pressure 120/67 05/11/25 18:51 Pulse Oximetry 100 05/11/25 18:51 <Zay Schroeder MD - Last Filed: 05/11/25 20:53> Discharge Plan Discharge Clinical Impression: Minor closed head injury <Dread Rahman MD - Last Filed: 05/11/25 20:18> Patient Disposition: Home <Dread Rahman MD - Last Filed: 05/11/25 20:18> Condition: Stable <Dread Rahman MD - Last Filed: 05/11/25 20:18> Instructions: Head Injury (ED) <Dread Rahman MD - Last Filed: 05/11/25 20:18> Additional Instructions: Can take Tylenol for pain as needed . ice pack to the area <Dread Rahman MD - Last Filed: 05/11/25 20:18> Patient Language: Italian <Dread Rahman MD - Last Filed: 05/11/25 20:18> Prescriptions: No Action DHA 200 mg capsule PO DAILY <Dread Rahman MD - Last Filed: 05/11/25 20:18> Follow-up/Referrals: Holland,VAUGHN Leija-C [Primary Care Provider, Unknown] <Dread Rahman MD - Last Filed: 05/11/25 20:18> Time of Disposition: 19:16 <Dread Rahman MD - Last Filed: 05/11/25 20:18> 19:16 <Zay Schroeder MD - Last Filed: 05/11/25 20:53>
[2025-05-11 21:10] VITALS: BP 118/74; PULSE 72; RESP 18; O2SAT 100
== END 2025-05-11 21:11 | disposition home or self-care (01) ==
LOC: ANHED 19:34
PROVIDERS: Emergency Provider Family Medicine; PCP Nurse Practitioner
DX: O9A.212 Injury, poisoning and certain other consequences of external causes complicating pregnancy, second trimester (principal); S09.90XA Unspecified injury of head, initial encounter; Z3A.26 26 weeks gestation of pregnancy; W18.30XA Fall on same level, unspecified, initial encounter
CPT/HCPCS: 70450; 99284

== ENCOUNTER 2025-05-19 14:14 | Outpatient (CLI) | payer BC, SELFPAY ==
[2025-05-19 16:31] LABS: Hematocrit 36.1 % (37.0-47.0); Hemoglobin 12.0 g/dL (12.0-15.0); Mean Corpuscular HGB Conc 33.2 g/dl (32-36); Mean Corpuscular Hemoglobin 31.6 pg (26-34); Mean Corpuscular Volume 95.0 fl (80-100); Platelet Count Result 184 k/mm3 (150-375); Red Blood Count 3.80 M/mm3 (4.2-5.4); White Blood Count 11.4 K/mm3 (4.5-10.0)
[2025-05-19 16:46] LABS: Glucose 1 Hour PP 50gm Dose 98 mg/dL
--- OUTSIDE RECORDS SUMMARY | 2025-05-19 16:52 | XMS_ITS | Clinical Summary ---
Author Organization [facility] Address [address] [place] [address] Care Team Providers Care Workgroup Leader Name Role Phone Karey Holland Primary Care Provider [phone] Karey Holland DISTRICT FIRE MANAGEMENT OFFICER Unavailable [phone] Allergies Active Allergy Reactions Criticality Noted Date Comments Diphenhydramine Hives Medium 03/10/2017 Seasonal Sneezing,Eyes Water & Itch Low 7 Medications DULoxetine (CYMBALTA) 60 MG capsuleIndicati ons:Generalized anxiety disorder TAKE 1 CAPSULE BY MOUTH DAILY 90 capsule 5 Active Additional Information Patient not taking.Reported on 02/28/2025 Vit-Fe Fumarate-FA ( 19 OR) Active Active Problems Problem Noted Date Diagnosed Date History of primary section 05/14/2023 Failure to progress in labor 05/12/2023 Missed 05/02/2022 Vitamin D deficiency 03/30/2021 Mild episode of recurrent major depressive disor alessandro 03/30/2021 Vitamin B12 deficiency 03/30/2021 depression 09/17/2020 07/20/2020 Gestational hypertension 07/20/2020 Urinary tract infection in m other during third trimester of 04/29/2020 S/P appendectomy 09/27/2019 Anxiety disorder 05/05/2017 Overview (09/11/2018): Date Onset: 05/05/2017 IBS (irritable bowel syndrome) 05/05/2017 Overview (09/11/2018): Note: sx currently controlled on diet sx currently controlled on diet Date Onset: 05/05/2017 Estimated Date of Delivery Comme nts Yes 08/13/2025 Encounters Date Type Department Care Team Description 03/27/2025 12:52 PM CDT - 03/27/2025 11:59 PM CDT Hospital Encounter [facility] Ul[facility]ound [address] [place] [address] Basilia Aparicio MD Discharge Disposition: Home or Self Care (Routine Discharge) 03/27/2025 Travel 03/13/2025 12:36 PM CDT - 03/13/2025 11:59 PM CDT Hospital Encounter [facility] [address] [place] [address] Betty Norwood MD Discharge Disposition: Home or Self Care (Routine Discharge) 03/13/2025 Travel 02/28/2025 12:00 PM CDT Office Visit [facility] [address] [place] [id number] Dari Tom NP Neck And Back Pain (Started this morning /) 02/28/2025 Travel 02/25/2025 Results [facility] [address] [place], [place] [id number] Basilia Ron, ABSORBER OPERATOR STREP A, DNA 02/21/2025 4:33 PM CDT - 02/21/2025 11:59 PM CDT Hospital Encounter [facility] [address] [place], [place] [id number] Karey Holland FNP Discharge Disposition: Home or Self Care (Routine Discharge) 02/21/2025 3:00 PM CDT [facility] [address] [place], [place] [id number] Karey Holland FNP Cough (X 4 days); Sore Throat (X 4 days ); Headache (X 4 days) 02/21/2025 Travel from Last 3 Months Immunizations Immunization Administration Dates Next Due Fluzone 6 Months+ Quad (0.5 mL Prefilled Syringe) 04/28/2020 HPV4 (Gardasil) 11/09/2011,06/16/2011,04/13/2011 Influenza Adult (Generic) 03/14/2017 Tdap (Adacel) 02/23/2023 Tdap (Generic) 02/22/2023 Tdap (Historical Only-select from magnify glass) 04/28/2020 Family History Medical History Relation Comments None Brother Diabetes Father Hypertension Mother None Sister Relation Status Comments Brother Alive Father Alive Mother Alive Sister Alive Social History Tobacco Use Types Packs/Day Years Used Date Smoking Tobacco: Never Passive Smoke Exposure: Never Smokeless Tobacco: Never Tobacco Cessation:Counseling Given: No Comments:Provider to university counselor Alcohol Use Standard Drinks/Week Comments Not Currently 0 (1 standard drink = 0.6 oz pur e alcohol) [facility] Dental Corpities Answer Date Recorded In the past 12 months has [employer], [employer], [employer], or water [employer] threatened to shut off services in your [...] week 05/12/2023 How often do you attend up health system or jewish services? Patient declined 05/12/2023 Do you belong to any clubs o r organizations such as episcopal groups, unions, fraternal or athletic groups, or [...] Date Recorded Patient Health Questionnaire-2 Score 0 11/21/2024 [facility] ional [facility] - Occupational Stress Questionnaire Answer Date Recorded [...] place to sleep or slept in a correction (including now)? No 05/12/2023 Estimated Date of Delivery Comme nts Yes 08/13/2025 Sex and Gender Information Value Date Recorded Sex Assigned at Female 02/21/2025 1:56 PM CDT Legal Sex Female 7:54 AM CDT Gender Identity Not on file Sexual Orientation Not on file Last Filed Vital Signs Vital Sign Reading Time Taken Comments Blood Pressure 115/70 02/28/2025 12:50 PM CDT Pulse 98 02/28/2025 12:07 PM CDT Temperature 36.9 C (98.5 F) 02/28/2025 12:07 PM CDT Respiratory Rate 20 02/28/2025 12:07 PM CDT Oxygen Saturation 98% 02/28/2025 12:07 PM CDT Inhaled Oxygen Concentration - - Weight 80.5 kg (177 lb 8 oz) 02/28/2025 12:07 PM CDT Height 175.3 cm (5' 9) 02/28/2025 12:07 PM CDT Body Mass Index 26.21 02/28/2025 12:07 PM CDT Plan of Treatment Health Maintenance Due Date Last Done Comments Cervical Cancer Screening Pa p Smear (Age 30 to 64) Every 3 Years 1992 Hepatitis B Vaccines (1 of 3 - 19+ 3-dose series) 2011 Annual Physical 09/17/2021 09/17/2020 Cervical Cancer Screening Pa p with HPV Testing (Age 30 to 64) Every 5 Years 2022 Cervical Cancer Screening wi th HPV 2022 COVID-19 Vaccine ( - 2024-2 6 season) 2025 Influenza Adult (#1) 2025 04/28/2020, 03/14/2017 RSV Immunization or 60+ Years (1 - Risk 1-dose series) 06/18/2025 DTaP, Tdap and Td Vaccines ( 4 - Td or Tdap) 02/23/2033 02/23/2023, 02/22/2023, 04/28/2020 HPV Vaccines Completed 11/09/2011, 06/16/2011, 04/13/2011 PHQ-2 (Physician [place]) Completed 11/21/2024 Hepatitis C Completed 01/21/2025, 12/30/2022, 12/30/2022 Hepatitis A Vaccines Aged Out No long er eligible based on patient's age to complete this topic Meningococcal B Vaccine Aged Out No l onger eligible based on patient's age to complete this topic Meningococcal Vaccine Aged Out No georgette anotny eligible based on patient's age to complete this topic Pneumococcal Vaccine: Pediatrics (0 to 5 Years) and At-Risk Patients (6 to 49 Years) Aged Out No longer eligible b ased on patient's age to complete this topic RSV Immunizations Under 20 Months Aged Out No longer eligible b ased on patient's age to complete this topic Procedures Procedure Name Priority Date/Time Associated Diagnosis Comments US OB COMP >14WKS TA Routine 03/27/2025 2:46 PM CDT Encounter for screening, unspecified ([facility]) US OB FOLLOWUP GROWTH Routine 03/13/2025 1:12 PM CDT Encounter for screening for uncertain dates ([facility]) STREP A, DNA Routine 02/21/2025 2:20 PM CDT Acute sore throat INFLUENZA ASSAY W/OPTIC Routine 02/21/2025 Acute cough CORONAVIRUS (COVID-19) ANTIGEN Routine 02/21/2025 Acute cough STREP A RAPID Routine 02/21/2025 Acute sore throat HC HEP C AB Routine 01/21/2025 10:36 AM CDT Encounter for screening of mother ([facility]) from Last 3 Months or Most Recently Relevant to Health Maintenance Results * US OB COMP >14WKS TA (03/27/2025 2:46 PM CDT) Anatomical Region Laterality Modality Abdomen Ultrasound 03/31/2025 8:53 AM CDT Impressions 03/31/2025 9:00 AM CDT IMPRESSION: 1. Single living intrauterine currently in breech presentation with a estimated gestational age of 20 weeks and 0 days by today's sonogram, concordant with clinical dating. 2. All required structures are visualized without appreciable anomaly. 3. Posterior placenta without previa. Ordered By: BASILIA APARICIO Interpreted By: Manuel Benitez, 03/31/2025 8:53 AM Narrative 03/31/2025 9:[address] [facility] [address] [place] [address] EXAMINATION: US OB COMP >14WKS TA INDICATIONS: Encounter for screening, unspecified ([facility]) COMPARISON: NONE TECHNIQUE: Second trimester obstetric transabdominal ultrasound imaging of the fetus. FINDINGS: Clinical datin weeks and 1 day.. Single live intrauterine in breech presentation. Normal four-chamber view of the heart with normal cardiac motion and a heart rate of 152 beats per minute. The ventricular outflow tracts are visualized. The placenta is posterior and clear of the internal cervical os. Placenta-Cervix distance: 3.9 cm. The cervix measures approximately 3.1 cm in length and appears closed. Amniotic Fluid Maximum Vertical Pocket: 4.4 cm. No significant free fluid within the dependent pelvis. anatomic survey: The ventricles, thalami, cava, cisterna magna, nasolabial region, and spine are visualized. Normal situs. The diaphragm, kidneys, stomach, and urinary bladder are visualized. Normal three-vessel cord and cord insertion. Four extremities are present . The following measurements were obtained: BPD: 4.72 cm consistent with 20 weeks and 2 days. HC: 17.77 cm consistent with 20 weeks and 2 days. AC: 14.72 cm consistent with 20 weeks and 0 days. FL: 3.18 cm consistent with 19 weeks and 6 days. CI: 74.86. HC/AC: 1.21. FL/BPD: 67.27. FL/HC: 17.86. FL/AC: 21.57. Estimated weight is 325 +/- 47 grams. EFW percentile: 35.6 % Estimated gestational age by today's sonogram is 20 weeks and 0 days. Estimated date of confinement by this ultrasound examination is 08/14/2025 Procedure Note Manuel Benitez MD - 03/31/2025 [facility] [address] [place] [address] EXAMINATION: US OB COMP >14WKS TA INDICATIONS: Encounter for screening, unspecified ([facility]) COMPARISON: NONE TECHNIQUE: Second trimester obstetric transabdominal ultrasound imagingof the fetus. FINDINGS: Clinical datin weeks and 1 day.. Single live intrauterine in breech presentation. Normal four-chamber view of the heart with normal cardiac motion mp heart rate of 152 beats per minute. The ventricular outflow tracts are visualized. The placenta is posterior and clear of the internal cervical os. Placenta-Cervix distance: 3.9 cm. The cervix measures approximately 3.1 cm in length and appears closed. Amniotic Fluid Maximum Vertical Pocket: 4.4 cm. No significant free fluid within the dependent pelvis. anatomic survey: The ventricles, thalami, cava, cisterna magna, nasolabial region, andspine are visualized. Normal situs. The diaphragm, kidneys, stomach, and urinary bladder are visualized. Normal three-vessel cord and cord insertion. Four extremities are present . The following measurements were obtained: BPD: 4.72 cm consistent with 20 weeks and 2 days. HC: 17.77 cm consistent with 20 weeks and 2 days. AC: 14.72 cm consistent with 20 weeks and 0 days. FL: 3.18 cm consistent with 19 weeks and 6 days. CI: 74.86. HC/AC: 1.21. FL/BPD: 67.27. FL/HC: 17.86. FL/AC: 21.57. Estimated weight is 325 +/- 47 grams. EFW percentile: 35.6 % Estimated gestational age by today's sonogram is 20 weeks and 0 days. Estimated date of confinement by this ultrasound examination is 08/14/2025 IMPRESSION: 1. Single living intrauterine currently in breech presentationwith a estimated gestational age of 20 weeks and 0 days by today'ssonogram, concordant with clinical dating. 2. All required structures are visualized without appreciableanomaly. 3. Posterior placenta without previa. Ordered By: BASILIA APARICIO Interpreted By: Manuel Benitez, 03/31/2025 8:53 AM us Basilia Aparicio MD ULTRASOUND Final Res ult * US OB FOLLOWUP GROWTH (03/13/2025 1:12 PM CDT) Anatomical Region Laterality Modality Abdomen Ultrasound 03/13/2025 3:14 PM CDT Impressions 03/13/2025 3:22 PM CDT IMPRESSION: 1. Single living intrauterine currently in breech presentation presentation with an estimated gestational age of 18 weeks and 3 days by today's sonogram, concordant with clinical dating. Recommend follow-up anatomy survey within the next 4 weeks 2. Estimated weight is at the 51st percentile. 3. Posterior placenta. Ordered By: BASILIA APARICIO Interpreted By: Manuel Benitez, 03/13/2025 3:14 PM Narrative 03/13/2025 3:22 PM CDT [id number] [place] [address] EXAMINATION: US OB FOLLOWUP GROWTH INDICATIONS: Encounter for screening for uncertain dates ([facility]) COMPARISON: NONE TECHNIQUE: Obstetric transabdominal ultrasound imaging of the fetus. FINDINGS: Clinical datin weeks and 1 day. positioning is breech. heart rate is 149 bpm. The placenta is posterior and away from the cervix. Amniotic Fluid Maximum Vertical Pocket: 3.9 cm. The following dating parameters were obtained: BPD: 4.18 cm consistent with 18 weeks and 5 days. HC: 15.55 cm consistent with 18 weeks and 4 days. AC: 12.96 cm consistent with 18 weeks and 4 days. FL: 2.60 cm consistent with 18 weeks and 0 days. growth parameters are within 2 standard deviations from the mean. CI: 76.26. HC/AC: 1.27. FL/BPD: 68.28. FL/HC: 16.72. FL/AC: 20.06. Estimated weight is 231 +/- 34 grams. EFW percentile: 51.2 % Estimated gestational age by today's sonogram is 18 weeks and 3 days. Estimated date of confinement by this ultrasound examination is 08/11/2025 Procedure Note Manuel Benitez MD - 03/13/2025 [facility] [address] [place] [address] EXAMINATION: US OB FOLLOWUP GROWTH INDICATIONS: Encounter for screening for uncertain dates([facility]) COMPARISON: NONE TECHNIQUE: Obstetric transabdominal ultrasound imaging of the fetus. FINDINGS: Clinical datin weeks and 1 day. positioning is breech. heart rate is 149 bpm. The placenta is posterior and away from the cervix. Amniotic Fluid Maximum Vertical Pocket: 3.9 cm. The following dating parameters were obtained: BPD: 4.18 cm consistent with 18 weeks and 5 days. HC: 15.55 cm consistent with 18 weeks and 4 days. AC: 12.96 cm consistent with 18 weeks and 4 days. FL: 2.60 cm consistent with 18 weeks and 0 days. growth parameters are within 2 standard deviations from the mean. CI: 76.26. HC/AC: 1.27. FL/BPD: 68.28. FL/HC: 16.72. FL/AC: 20.06. Estimated weight is 231 +/- 34 grams. EFW percentile: 51.2 % Estimated gestational age by today's sonogram is 18 weeks and 3 days. Estimated date of confinement by this ultrasound examination is 08/11/2025 IMPRESSION: 1. Single living intrauterine currently in breech presentationpresentation with an estimated gestational age of 18 weeks and 3 days bytoday's sonogram, concordant with clinical dating. Recommend follow-upfetal anatomy survey within the next 4 weeks 2. Estimated weight is at the 51st percentile. 3. Posterior placenta. Ordered By: BASILIA APARICIO Interpreted By: Manuel Benitez, 03/13/2025 3:14 PM Basilia Aparicio MD ULTRASOUND Final Res ult * STREP A, DNA (02/21/2025 2:20 PM CDT) SPECIMEN SOURCE THROAT 5 4:34 PM CDT [facility] STREP A MOLECULAR NEGATIVE NEGATIVE 025 11:28 PM CDT [facility] Comment:SPECIMEN NEGATIVE FO R GROUP A STREPTOCOCCUS BY DNA AMPLIFICATION STRUCTURE OF ANTERIOR REGION OF NECK / Unknown 02/21/2025 2:20 PM CDT Karey Holland [facility] MICROBIOLOGY - GENERAL ORDERA BLES Final Result [facility] [address] [id number], [place] [phone] [facility] [address] [place] [address], [place] * CORONAVIRUS (COVID-19) ANTIGEN (02/21/2025) Pathologist [facility] CORONAVIRUS ANTIGEN IA NEGATIVE NEGATIVE [facility] ([address]), [place] Internal Control: VALID VALID [facility] ([address]), [place] NASAL NASAL STRUCTURE / Unknown 02/21/2025 Karey [facility] MICROBIOLOGY - GENERAL ORDERA BLES Final Result [facility] ([address]), [address] [place] [address], [place] [phone] * INFLUENZA A & B (02/21/2025) Pathologist [facility] INFLUENZA A NEGATIVE NEGATIVE [facility] ([address]), [place] INFLUENZA B NEGATIVE NEGATIVE [facility] [place] Internal Control: VALID VALID [facility] (201), [place] NASAL STRUCTURE / Unknown 02/21/2025 Karey Holland DISTRICT FIRE MANAGEMENT OFFICER MICROBIOLOGY - GENERAL ORDERA BLES Final Result [facility] ([address]), [address] [address], [place] [phone] * STREP A RAPID (02/21/2025) RAPID STREP TEST NEGATIVE NEGATIVE [facility] ([address]), [place] Internal Control: VALID VALID [facility] ([address]), [place] STRUCTURE OF ANTERIOR REGION OF NECK / Unknown 02/21/2025 Karey Holland DISTRICT FIRE MANAGEMENT OFFICER MICROBIOLOGY - GENERAL ORDERA BLES Final Result [facility] ([address]), [address] [address], [place] [phone] * HEPATITIS C ANTIBODY (01/21/2025 10:36 AM CDT) Pathologist [facility] HEPATITIS C AB NON-REACTI VE NON-REACTI VE 01/21/2025 8:35 PM CDT [facility] 01/21/2025 10:3 6 AM CDT Betty Norwood MD LABORATORY Final Result [facility] [address] [place] [address], [place] [phone] from Last 3 Months or Most Recently Relevant to Health Maintenance Insurance [facility] Advance Directives * Full Code (Latest Code Status on File) Date Activated Date Inactivated Comments 05/13/2023 10:18 AM 05/15/2023 2:09 PM * Full Code Date Activated Date Inactivated Comments 05/12/2023 6:08 AM 05/13/2023 10:18 AM * Full Code Date Activated Date Inactivated Comments 04/26/2023 4:18 PM 04/26/2023 7:31 PM * Full Code Date Activated Date Inactivated Comments 04/25/2023 2:41 PM 04/25/2023 6:29 PM * Full Code Date Activated Date Inactivated Comments 04/24/2023 12:26 AM 04/24/2023 5:07 AM Care Teams Workgroup Leader Relationship Specialty Start Date End Date Karey Holland FNP [address] [place], [place] [id number] PCP - General Nurse Practitioner Family 10/20/21 Karey Holland FNP [address] [place] [address] Nurse Practitioner Family 10/20/21
--- OUTSIDE RECORDS SUMMARY | 2025-05-19 16:52 | XMS_ITS | Encounter Summary ---
Author Organization [facility] Address [address] [place] [address] Care Team Providers Care Driver Starting Gate Name Role Phone Karey HollandP Primary Care Provider [phone] Karey Holland DIRECTOR OF PLANNING Primary Care Provider [phone] Karey Holland DIRECTOR OF PLANNING Primary Care Provider [phone] Karey Holland DIRECTOR OF PLANNING Primary Care Provider [phone] Karey Holland DIRECTOR OF PLANNING Unavailable [phone] Encounter Details Date Type Department Care Team (Late st Contact Info) Description 12/08/2015 Abstract [facility] CONVERSION [address] [place], [place] [id number] , Generic ConversionMD Social History Tobacco Use [...] Rule Out 05/25/2021 05/25/2021 05/25/2021 1:25 PM 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 COVID-19 Rule Out 02/28/2024 02/28/2024 02/28/2024 3:03 PM CDT COVID-19 Rule Out 02/21/2025 02/21/2025 02/21/2025 2:14 PM CDT documented as of this encounter Care Teams Driver Starting Gate Relationship Specialty Start Date End Date Karey Holland FNP [address] [place] [address] PCP - General Nurse Practitioner Family 12/19/17 Karey Holland FNP [address] [place] [address] PCP - General Nurse Practitioner Family 05/14/1809/25 Karey Holland FNP [address] [place] [address] PCP - General Nurse Practitioner Family 09/27/1909/25 Karey Holland FNP [address] [place] [address] PCP - General Nurse Practitioner Family 10/20/21 Karey Holland FNP [address] [place] [address] Nurse Practitioner Family 10/20/21 documented as of this encounter
--- OUTSIDE RECORDS SUMMARY | 2025-05-19 16:52 | XMS_ITS | Encounter Summary ---
Author Organization [facility] Address [address] [place] [address] Care Team Providers Care Treater Name Role Phone Karey Holland Primary Care Provider [phone] Karey Holland RESTAURANT SUPERVISOR Unavailable [phone] Encounter Details Date Type Department Care Team (Late st Contact Info) Description 12/20/2023 [facility] Patient Accounts [address] [place] [address] [facility] Action Required Social History Tobacco Use Types Packs/Day Years Used Date Smoking Tobacco: Never Passive Smoke Exposure: Never Smokeless Tobacco: Never Comments:Provider to pastoral counselor Alcohol Use Standard Drinks/Week Comments Not Currently 0 (1 standard drink = 0.6 oz pur e alcohol) [facility] Utilities Answer Date Recorded In the past 12 months has [employer], [employer], or water [employer] threatened to shut off services in your [...] How often do you attend chur or orthodoxy services? Patient declined 05/12/2023 Do you belong to any clubs o r organizations such as mosque groups, unions, fraternal or athletic groups, or [...] Recorded Patient Health Questionnaire-2 Score 0 11/13/2023 [facility] - Occupational [...] place to sleep or slept in a mcc (including now)? No 05/12/2023 Comments No Sex [...] documented as of this encounter Care Teams Treater Relationship Specialty Start Date End Date Karey Holland FNP [address] [place] [address] BRET Garcia [id number] PCP - General Nurse Practitioner Family 10/20/21 Karey Holland FNP [address] [place] [address] B[place] [id number] Nurse Practitioner Family 10/20/21 documented as of this encounter
[2025-05-19 17:14] LABS: Syphilis IgG/IgM Antibody Non-Reactive (Nonreactive)
[2025-05-19 17:26] LABS: HIV 1/2 Ab P24 Ag Result Negative (Negative)
== END 2025-05-19 14:15 | disposition home or self-care (01) ==
PROVIDERS: PCP Nurse Practitioner; Visit Provider Nurse Practitioner Obstetrics & Gynecology
DX: Z34.90 Encounter for supervision of normal pregnancy, unspecified, unspecified trimester (principal); Z3A.00 Weeks of gestation of pregnancy not specified
CPT/HCPCS: 36415; 82947; 85027; 86593; 86703; G0432